=== PATIENT | male | born 1990 | race Caucasian/White ===

== ENCOUNTER 2016-07-30 11:58 | Emergency (ER) | payer BC, OTHER ==
--- NOTE | 2016-07-30 12:13 | EDM.PDOC ---
ED HPI Trauma - General Chief Complaint: Lower Extremity Injury/Pain Stated Complaint: LT KNEE HURTS Time Seen by Provider: 07/30/16 12:10 Source: Reports: Patient History Limitations: Reports: No limitations - History of Present Illness INITIAL COMMENTS - FREE TEXT/NARRATIVE: History of present illness: [25-year-old male presenting with complaints of pain to left knee. Patient indicates approximately 2-3 days ago he had been lifting heavy objects at work which is not unusual, and subsequently at the end of the day had a burning sensation and diffuse pain to left patella region. Patient indicates that the pain was on both sides of the patella consistent with issues in bilateral retinaculum.] Review of systems: As per history of present illness and below otherwise all systems reviewed and negative. Past medical history: As per history of present illness and as reviewed below otherwise noncontributory. Surgical history: As per history of present illness and as reviewed below otherwise noncontributory. Social history: No reported history of drug or alcohol abuse. Family history: As per history of present illness and as reviewed below otherwise noncontributory. Physical exam: HEENT: Atraumatic, normocephalic, pupils reactive, negative for conjunctival pallor or scleral icterus, mucous membranes moist, throat clear, neck supple, nontender, trachea midline. Lungs: Clear to auscultation, breath sounds equal bilaterally, chest nontender. Heart: S1S2, regular, negative for clicks, rubs, or JVD. Abdomen: Soft, nondistended, nontender. Negative for masses or hepatosplenomegaly. Negative for costovertebral tenderness. Pelvis: Stable nontender. Genitourinary: Deferred. Rectal: Deferred. Extremities: Atraumatic, negative for cords or calf pain. Neurovascular unremarkable. Neuro: Awake, alert, oriented. Cranial nerves II through XII unremarkable. Cerebellum unremarkable. Motor and sensory unremarkable throughout. Exam nonfocal. Some amount of guarding noted with passive range of motion. Patient ambulating with an altered gait upon arrival. Diagnostics: [X-ray of left knee] Therapeutics: [] Impression: [Knee pain] Plan: [Elevate, [id number] pain medication, alternate ice and heat] Definitive disposition and diagnosis as appropriate pending reevaluation and review of above. Allergies/ADRs: Allergies amoxicillin Allergy (Verified 07/30/16 12:07) Rash Home Medications: Ambulatory Orders . [No Known Home Meds] 07/30/16 [Confirmed 07/30/16] Past Medical History Cardiovascular History: Reports: None Respiratory History: Reports: None Musculoskeletal History: Reports: None Psychiatric History: Reports: None Dermatologic History: Reports: None - Infectious Disease History Infectious Disease History: Reports: None - Past Surgical History HEENT Surgical History: Reports: Tonsillectomy Cardiovascular Surgical History: Reports: None Musculoskeletal Surgical History: Reports: None Social & Family History - Tobacco Use Smoking Status *Q: Never Smoker Review of Systems - Review of Systems Review Of Systems: See Below (See history of present illness) Trauma Exam - Physical Exam Exam: See Below (The history of present illness) Course - Vital Signs Last Recorded V/S: Last Vital Signs Temp 36.6 C 07/30/16 12:03 Pulse 81 07/30/16 12:03 Resp 16 07/30/16 12:03 BP 122/66 07/30/16 12:03 Pulse Ox 98 07/30/16 12:03 Departure - Departure Time of Disposition: 13:07 Disposition: Home, Self-Care 01 Condition: good Clinical Impression: Left knee pain Qualifiers: Chronicity: acute Qualified Code(s): M25.562 - Pain in left knee Forms: ED Department Discharge Additional Instructions: The following information is given to patients seen in the emergency department who are being discharged to home. This information is to outline your options for follow-up care. We provide all patients seen in our emergency department with a follow-up referral. The need for follow-up, as well as the timing and circumstances, are variable depending upon the specifics of your emergency department visit. If you don't have a primary care physician on staff, we will provide you with a referral. We always advise you to contact your personal physician following an emergency department visit to inform them of the circumstance of the visit and for follow-up with them and/or the need for any referrals to a consulting specialist. The emergency department will also refer you to a specialist when appropriate. This referral assures that you have the opportunity for follow-up care with a specialist. All of these measure are taken in an effort to provide you with optimal care, which includes your follow-up. Under all circumstances we always encourage you to contact your private physician who remains a resource for coordinating your care. When calling for follow-up care, please make the office aware that this follow-up is from your recent emergency room visit. If for any reason you are refused follow-up, please contact the [facility] Emergency Department at and asked to speak to the emergency department charge nurse. Followup with primary care provider one to 2 days Keep leg elevated as much as possible and alternate ice and heat no longer than 20 minutes each time Return to ED as needed as discussed
--- NOTE | 2016-07-30 13:02 | CR ---
EXAMINATION: Left knee HISTORY: Pain COMPARISON: None TECHNIQUE: 3 views FINDINGS/IMPRESSION: There is no acute osseous abnormality, dislocation, or fracture identified. Bon e mineralization and joint spaces appear normal. No Soft tissue swelling or joint effusion.
[2016-07-30 13:42] VITALS: BP 120/76
== END 2016-07-30 13:29 | disposition home or self-care (01) ==
LOC: MW.ED 11:58
DX: M25.562 Pain in left knee (principal); Z79.899 Other long term (current) drug therapy; X50.0XXA Overexertion from strenuous movement or load, initial encounter
CPT/HCPCS: 73562-26-LT; 73562-LT; 99282; 99283

== ENCOUNTER 2017-09-11 01:56 | Emergency (ER) | payer OTHER, BC ==
--- NOTE | 2017-09-11 02:13 | EDM.PDOC ---
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 Past medical history: As per history of present illness and as reviewed below otherwise noncontributory. Surgical history: As per history of present illness and as reviewed below otherwise noncontributory. Social history: No reported history of drug or alcohol abuse. Family history: As per history of present illness and as reviewed below otherwise noncontributory. Physical exam: HEENT: Atraumatic, normocephalic, pupils reactive, negative for conjunctival pallor or scleral icterus, mucous membranes moist, throat clear, neck supple, nontender, trachea midline. Lungs: Clear to auscultation, breath sounds equal bilaterally, chest nontender. Heart: S1S2, regular, negative for clicks, rubs, or JVD. Abdomen: Soft, nondistended, nontender. Negative for masses or hepatosplenomegaly. Negative for costovertebral tenderness. Pelvis: Stable nontender. Genitourinary: Deferred. Rectal: Deferred. Extremities: Atraumatic, negative for cords or calf pain. Neurovascular unremarkable. Neuro: Awake, alert, oriented. Cranial nerves II through XII unremarkable. Cerebellum unremarkable. Motor and sensory unremarkable throughout. Exam nonfocal. Diagnostics: [ CBC CMP troponin EKG Chest 1 view ] Therapeutics: [ Cataflam 50 mg by mouth 3 times a day when necessary #30 no refill ] Impression: [ chest wall pain Muscle spasm ] Definitive disposition and diagnosis as appropriate pending reevaluation and review of above. chest pain Pain Score (Numeric/FACES): 10 - Related Data Allergies Allergy/AdvReac Type Severity Reaction Status Date / Time amoxicillin Allergy Rash Verified 09/11/17 02:06 Home Meds: Home Meds . [No Known Home Meds] 07/30/16 [History] Past Medical History HEENT History: Reports: None Cardiovascular History: Reports: None Respiratory History: Reports: None Gastrointestinal History: Reports: None Genitourinary History: Reports: None Musculoskeletal History: Reports: None Neurological History: Reports: None Psychiatric History: Reports: None Endocrine/Metabolic History: Reports: None Hematologic History: Reports: None Oncologic (Cancer) History: Reports: None Dermatologic History: Reports: None - Infectious Disease History Infectious Disease History: Reports: None - Past Surgical History Head Surgeries/Procedures: Reports: None HEENT Surgical History: Reports: Tonsillectomy Cardiovascular Surgical History: Reports: None Musculoskeletal Surgical History: Reports: None Social & Family History - Family History Family Medical History: Noncontributory - Tobacco Use Smoking Status *Q: Never Smoker - Caffeine Use Caffeine Use: Reports: Energy Drinks - Recreational Drug Use Recreational Drug Use: No ED ROS GENERAL - Review of Systems Review Of Systems: ROS reveals no pertinent complaints other than HPI. ED EXAM, GENERAL - Physical Exam Exam: See Below Course - Vital Signs Last Recorded V/S: Last Vital Signs Temp 97.4 F 09/11/17 02:27 Pulse 63 09/11/17 02:27 Resp 18 09/11/17 02:27 BP 109/67 09/11/17 02:27 Pulse Ox 98 09/11/17 02:27 - Orders/Labs/Meds Orders: Active Orders 24 hr Category Date Time Status EKG Documentation Completion [RC] STAT Care 09/11/17 02:09 Active Chest 1V Frontal [CR] Stat Exams 09/11/17 02:09 Taken Labs: Laboratory Tests 09/11/17 09/11/17 Range/Units 02:25 02:25 WBC 6.35 (4.0-11.0) K/uL RBC 4.41 L (4.50-5.90) M/uL Hgb 14.1 (13.0-17.0) g/dL Hct 39.6 (38.0-50.0) % MCV 89.8 (80.0-98.0) fL MCH 32.0 (27.0-32.0) pg MCHC 35.6 (31.0-37.0) g/dL RDW Std Deviation 41.9 (28.0-62.0) fl RDW Coeff of Saira 13 (11.0-15.0) % Plt Count 171 (150-400) K/uL MPV 10.50 (7.40-12.00) fL Neut % (Auto) 37.9 L (48.0-80.0) % Lymph % (Auto) 43.0 H (16.0-40.0) % [place] % (Auto) 11.7 (0.0-15.0) % Eos % (Auto) 6.9 (0.0-7.0) % Baso % (Auto) 0.5 (0.0-1.5) % Neut # (Auto) 2.4 (1.4-5.7) K/uL Lymph # (Auto) 2.7 H (0.6-2.4) K/uL [place] # (Auto) 0.7 (0.0-0.8) K/uL Eos # (Auto) 0.4 (0.0-0.7) K/uL Baso # (Auto) 0.0 (0.0-0.1) K/uL Nucleated RBC % 0.0 /100WBC Nucleated RBCs # 0 K/uL Sodium 140 (136-148) mmol/L Potassium 3.7 (3.5-5.1) mmol/L Chloride 105 (98-107) mmol/L Carbon Dioxide 25.1 (21.0-32.0) mmol/L BUN 14 (7.0-18.0) mg/dL Creatinine 1.0 (0.8-1.3) mg/dL Est Cr Clr Drug Dosing 114.04 mL/min Estimated GFR (MDRD) > 60.0 ml/min Glucose 99 (74-106) mg/dL Calcium 8.8 (8.5-10.1) mg/dL Total Bilirubin 1.5 H (0.2-1.0) mg/dL AST 20 (15-37) IU/L ALT 19 (14-63) IU/L Alkaline Phosphatase 61 (46-116) U/L Troponin I < 0.050 (0.000-0.056) ng/mL Total Protein 7.1 (6.4-8.2) g/dL Albumin 4.2 (3.4-5.0) g/dL Globulin 2.9 (2.0-3.5) g/dL Albumin/Globulin Ratio 1.4 (1.3-2.8) Departure - Departure Time of Disposition: 03:25 Disposition: Home, Self-Care 01 Condition: Good Clinical Impression: Chest wall pain, Muscle spasm - Discharge Information Forms: ED Department Discharge Additional Instructions: Medication as prescribed Return if symptoms persist or worsen or new concerning symptoms develop Follow-up with primary care in 2 [address] sooner as needed [facility] - [facility] [address] [place] [id number] The following information is given to patients seen in the emergency department who are being discharged to home. This information is to outline your options for follow-up care. We provide all patients seen in our emergency department with a follow-up referral. The need for follow-up, as well as the timing and circumstances, are variable depending upon the specifics of your emergency department visit. If you don't have a primary care physician on staff, we will provide you with a referral. We always advise you to contact your personal physician following an emergency department visit to inform them of the circumstance of the visit and for follow-up with them and/or the need for any referrals to a consulting specialist. The emergency department will also refer you to a specialist when appropriate. This referral assures that you have the opportunity for follow-up care with a specialist. All of these measure are taken in an effort to provide you with optimal care, which includes your follow-up. Under all circumstances we always encourage you to contact your private physician who remains a resource for coordinating your care. When calling for follow-up care, please make the office aware that this follow-up is from your recent emergency room visit. If for any reason you are refused follow-up, please contact the [facility] emergency department at and asked to speak to the emergency department charge nurse. - My Orders Last 24 Hours: My Active Orders 09/11/17 02:09 EKG Documentation Completion [RC] STAT Chest 1V Frontal [CR] Stat - Assessment/Plan Last 24 Hours: My Active Orders 09/11/17 02:09 EKG Documentation Completion [RC] STAT Chest 1V Frontal [CR] Stat
[2017-09-11 02:56] LABS: CHLORIDE,CL 105 mmol/L (98-107); SODIUM,NA 140 mmol/L (136-148)
[2017-09-11] MEDS ORDERED: Ketorolac 30 MG/ML SDV IVPUSH ONE (03:27)
[2017-09-11] MEDS ORDERED: Ketorolac 30 MG/ML SDV IM ONE (03:47)
[2017-09-11 04:22] VITALS: BP 118/63
--- NOTE | 2017-09-11 12:40 | CR ---
EXAM DATE: 09/11/17 PATIENT'S AGE: 26 Patient: MARY GRACE ARIAS Facility: [place], [place] Site . Site : 1990 Study: XRay Chest [id number] 2:44:27 AM Ordering Physician: Rola Alan Final Report: Indication: Chest pain, shortness of breath Technique: Chest 1 view Comparison: None Findings/Impression: Cardiovascular and mediastinum: Heart size and vasculature are normal in caliber and appearance. Mediastinum is within normal limits. Lungs and pleural space: Lungs are clear. No sign of infiltrate or mass. No sign of pleural effusion. No pneumothorax. Bones and soft tissues: No significant findings. Dictated by Mimi Park MD @ Sep 11 2017 2:50AM (Electronic Signature) Report Signed by Proxy. [facility]
== END 2017-09-11 04:30 | disposition home or self-care (01) ==
LOC: MW.ED 01:56
DX: R07.89 Other chest pain (principal); M62.838 Other muscle spasm; Z88.1 Allergy status to other antibiotic agents
CPT/HCPCS: 36415; 71045; 80053; 84484; 85025; 93005; 96372; 99285; J1885

== ENCOUNTER 2020-02-28 22:48 | Emergency (ER) | payer BC ==
[2020-02-28] MEDS ORDERED: Sodium Chloride 0.9% 1,000 ML IV ONE (23:48)
[2020-02-28] MEDS ORDERED: LORazepam 0.5 MG Tab PO ONE (23:49)
--- NOTE | 2020-02-29 00:17 | CR ---
Indication: Chest pain Technique: Chest 1 view Comparison: Chest x-ray 09/11/2017 Findings/Impression: Cardiovascular and mediastinum: Heart size and vasculature are normal in caliber and appearance. Lungs and pleural space: Lungs are clear. No sign of infiltrate or mass. No sign of pleural effusion. No pneumothorax. Bones and soft tissues: No acute findings. Dictated by Evelio Sin MD @ Feb 29 2020 12:14AM Signed by Dr. Evelio Sin @ Feb 29 2020 12:16AM
[2020-02-29 00:28] LABS: BLOOD UREA NITROGEN,BUN 14 mg/dL (7.0-18.0); CARBON DIOXIDE,CO2 25.9 mmol/L (21.0-32.0); CHLORIDE,CL 102 mmol/L (98-107); GLUCOSE RANDOM 115 mg/dL (74-106); POTASSIUM,K 3.5 mmol/L (3.5-5.1); SODIUM,NA 139 mmol/L (136-148)
--- NOTE | 2020-02-29 04:39 | EDM.PDOC ---
ED HPI GENERAL MEDICAL PROBLEM - General Chief Complaint: Behavioral/Psych Stated Complaint: CHEST PAIN Time Seen by Provider: 02/28/20 23:46 - History of Present Illness INITIAL COMMENTS - FREE TEXT/NARRATIVE: CHIEF COMPLAINT(S): "My chest feels hot." HISTORY OF PRESENT ILLNESS: This is a 29-year-old man and without any significant past medical history who comes to the emergency department with a chief complaint of "my chest feels hot." The patient states that approximately 3 hours prior to arrival he was smoking marijuana and that he felt like the left side of his chest was hot and he feels like there is numbness in his left arm and left back. He denies any pain, shortness of breath, lower extremity edema, recent travel or recent surgery. He denies any nausea or vomiting. He denies any coingestions. He states that he is concerned because there is cardiac disease in his family. He states that his father in his 30s had heart attacks. He denies any other symptoms. He states that he does feel anxious. REVIEW OF SYSTEMS: Constitutional: Denies fever, chills. Eyes: Denies eye pain Ears, Nose, Mouth, & Throat: Denies earache Cardiovascular: Positive for sensation of warmth on his left chest. Denies c hest pain Respiratory: Denies shortness of breath Gastrointestinal: Denies Nausea, vomiting, diarrhea, hematochezia. Genitourinary: Denies hematuria Skin:Denies a rash Neurological: Positive for numbness on his back and left arm. Denies blurred vision, headache, weakness Psychiatric: Denies depression PAST MEDICAL HISTORY: As per history of present illness and as reviewed below otherwise noncontributory. SURGICAL HISTORY: As per history of present illness and as reviewed below otherwise noncontributory. SOCIAL HISTORY: As per history of present illness and as reviewed below otherwise noncontributory. FAMILY HISTORY: As per history of present illness and as reviewed below otherwise noncontributory. EXAMINATION OF ORGAN SYSTEMS/BODY AREAS: Constitutional: Blood pressure was 156/84, heart rate 67, respiratory rate 20 with an oxygen saturation 97% on room air. Temperature 37.2 General: Anxious appearing man who is in no acute distress Psychiatric: Appears anxious Eyes: No scleral icterus or conjunctival erythema there is scleral injection. Pupils are equal round and reactive to light. Extraocular movements intact. ENMT: Dry mucous membranes. No oropharyngeal erythema. Cardiovascular: Regular, rate, and rythym. No gallops, murmurs, or rubs. Bilateral upper extremity pulses symmetric and intact. No peripheral edema. No JVD. Respiratory: Lungs clear to auscultation bilaterally. No wheezes, rales, or rhonchi. Gastrointestinal: Soft, non-tender, non-distended. Normoactive bowel sounds Genitourinary: No suprapubic tenderness Musculoskeletal: Of the right shoulder, right elbow, right wrist, right hand. Skin: No lesions or abrasions. Neurological: AOx4. CN grossly intact. Stregth 5/5 in bilateral upper and lower extremity. Sensation is intact bilaterally in upper and lower extremity. MEDICAL DECISION MAKING AND COURSE IN THE ED WITH INTERPRETATION/REVIEW OF DIAGNOSTIC STUDIES: This is a 29-year-old man without any significant past medical history who comes to the emergency department with sensation of his left-sided chest wall being warm with numbness in his back and left arm. Given the patient's family history of cardiac disease I did obtain an EKG which did not reveal any acute signs of ischemia. The patient will undergo a cardiac work-up including troponin x2. We treat the patient symptomatically with IV fluids and 0.5 mg of Ativan for anxiety. We will place the patient on cardiac monitoring and pulse oximetry. Laboratory: BMP was unremarkable except for mild hyperglycemia at 115. Troponin x2 is negative. Twelve-lead EKG interpreted by myself. Normal sinus rhythm at a rate of 70beats per minute. Normal axis. VT interval is 159ms. QRS duration is 90ms. ST segments are normal without elevations or depressions. No Q waves present. Hypertrophy not noted. No prior EKGs in our system interpretation: Normal sinus rhythm The radiological images were viewed by myself along with reading the report from the radiologist. Chest x-ray does not reveal an acute cardiopulmonary process. The patient was observed in the emergency department, patient was able to ambulate without any difficulty, was able to tolerate p.o. At this time I do believe the patient symptoms are likely secondary to marijuana use. I did discuss this with the patient. I discussed with him that he should follow-up with a primary care physician in 2 to 3 days. He is to return for any new worsening symptoms. The patient was amenable to discharge at this time and had no further questions DISPOSITION: The patient was discharged home in stable condition. The patient will follow up with primary care within 2 to 3 days CONDITION: Fair PROCEDURES: None FINAL IMPRESSION(S)/DIAGNOSES: 1. Acute marijuana intoxication Rick Grossman M.D. - Related Data Allergies Allergy/AdvReac Type Severity Reaction Status Date / Time amoxicillin Allergy Rash Verified 02/28/20 23:19 Home Meds: Home Meds . [No Known Home Meds] 07/30/16 [History] Past Medical History HEENT History: Reports: None Cardiovascular History: Reports: None Other Cardiovascular History: was seen in ER for mini chest pains- had stress test but didnt find anything Respiratory History: Reports: None Gastrointestinal History: Reports: None Genitourinary History: Reports: None Musculoskeletal History: Reports: None Other Musculoskeletal History: Broken R ring finger Neurological History: Reports: None Psychiatric History: Reports: ADD, Depression Endocrine/Metabolic History: Reports: None Hematologic History: Reports: None Oncologic (Cancer) History: Reports: None Dermatologic History: Reports: None - Infectious Disease History Infectious Disease History: Reports: Chicken Pox - Past Surgical History Head Surgeries/Procedures: Reports: None HEENT Surgical History: Reports: Tonsillectomy Cardiovascular Surgical History: Reports: None Musculoskeletal Surgical History: Reports: None Social & Family History - Family History Family Medical History: Noncontributory - Caffeine Use Caffeine Use: Reports: None - Recreational Drug Use Recreational Drug Type: Reports: Marijuana/Hashish ED ROS GENERAL - Review of Systems Review Of Systems: See Below ED EXAM, GENERAL - Physical Exam Exam: See Below Course - Vital Signs Last Recorded V/S: Last Vital Signs Temp 37.2 C 02/28/20 23:21 Pulse 63 02/29/20 04:40 Resp 16 02/29/20 04:40 BP 127/82 02/29/20 04:40 Pulse Ox 98 02/29/20 04:40 - Orders/Labs/Meds Orders: Active Orders 24 hr Category Date Time Status EKG 12 Lead [EKG Documentation Completion] [RC] STAT Care 02/28/20 23:49 Active Labs: Laboratory Tests 02/29/20 02/29/20 02/29/20 Range/Units 00:00 00:00 02:47 Sodium 139 (136-148) mmol/L Potassium 3.5 (3.5-5.1) mmol/L Chloride 102 (98-107) mmol/L Carbon Dioxide 25.9 (21.0-32.0) mmol/L BUN 14 (7.0-18.0) mg/dL Creatinine 1.1 (0.8-1.3) mg/dL Est Cr Clr Drug Dosing 101.35 mL/min Estimated GFR (MDRD) > 60.0 ml/min Glucose 115 H (74-106) mg/dL Calcium 9.3 (8.5-10.1) mg/dL Total Bilirubin 0.9 (0.2-1.0) mg/dL AST 20 (15-37) IU/L ALT 29 (14-63) IU/L Alkaline Phosphatase 55 (46-116) U/L Troponin I < 0.050 < 0.050 (0.000-0.056) ng/mL Total Protein 8.0 (6.4-8.2) g/dL Albumin 4.7 (3.4-5.0) g/dL Globulin 3.3 (2.6-4.0) g/dL Albumin/Globulin Ratio 1.4 (0.9-1.6) Meds: Medications Discontinued Medications Generic Name Dose Route Start Last Admin Trade Name Freq PRN Reason Stop Dose Admin Sodium Chloride 1,000 mls @ 999 mls/hr 02/28/20 23:48 02/29/20 00:01 Normal Saline IV 02/29/20 00:48 999 mls/hr .Bolus ONE Administration Lorazepam 0.5 mg 02/28/20 23:49 02/29/20 00:03 Ativan PO 02/28/20 23:50 0.5 mg ONETIME ONE Administration Departure - Departure Time of Disposition: 04:38 Disposition: Home, Self-Care 01 Condition: Fair Clinical Impression: Marijuana intoxication Qualifiers: Complication of substance-induced condition: with perceptual disturbance Qualified Code(s): F12.922 - Cannabis use, unspecified with intoxication with perceptual disturbance - Discharge Information *PRESCRIPTION DRUG MONITORING PROGRAM REVIEWED*: No *COPY OF PRESCRIPTION DRUG MONITORING REPORT IN PATIENT CALEB: No Instructions: Cannabis Use Disorder, What You Need to Know About Marijuana Use Referrals: Kassidy Simmons PA [Primary Care Provider] - Forms: ED Department Discharge Additional Instructions: The patient is informed of any results of their evaluation and diagnostic workup and all questions are answered. They are given discharge instructions and return precautions. The patient is stable for discharge. The patient states they understand and agree with the plan and that they will return if their symptoms get worse or if they have any new concerns. The following information is given to patients seen in the emergency department who are being discharged to home. This information is to outline your options for follow-up care. We provide all patients seen in our emergency department with a follow-up referral. The need for follow-up, as well as the timing and circumstances, are variable depending upon the specifics of your emergency department visit. If you don't have a primary care physician on staff, we will provide you with a referral. We always advise you to contact your personal physician following an emergency department visit to inform them of the circumstance of the visit and for follow-up with them and/or the need for any referrals to a consulting specialist. The emergency department will also refer you to a specialist when appropriate. This referral assures that you have the opportunity for follow-up care with a specialist. All of these measure are taken in an effort to provide you with optimal care, which includes your follow-up. Under all circumstances we always encourage you to contact your private physician who remains a resource for coordinating your care. When calling for follow-up care, please make the office aware that this follow-up is from your recent emergency room visit. If for any reason you are refused follow-up, please contact the [facility] Emergency Department at and asked to speak to the emergency department charge nurse. Please continue to hydrate by mouth. Please follow-up with primary care physician this week. Return to the emergency department for any new or worsening symptoms. Sepsis Event Note (ED) - Evaluation Sepsis Screening Result: No Definite Risk - Focused Exam Vital Signs: Vital Signs Temp Pulse Resp BP Pulse Ox 02/29/20 04:40 63 16 127/82 98 02/29/20 04:00 61 18 100 02/29/20 03:00 60 18 98 02/29/20 01:59 61 18 120/80 100 02/29/20 00:45 78 18 131/79 97 02/28/20 23:21 37.2 C 67 20 156/84 H 97 - My Orders Last 24 Hours: My Active Orders 02/28/20 23:49 EKG 12 Lead [EKG Documentation Completion] [RC] STAT - Assessment/Plan Last 24 Hours: My Active Orders 02/28/20 23:49 EKG 12 Lead [EKG Documentation Completion] [RC] STAT
[2020-02-29 04:41] VITALS: BP 127/82; PULSE 63
== END 2020-02-29 04:45 | disposition home or self-care (01) ==
LOC: MW.ED 22:48
DX: F12.922 Cannabis use, unspecified with intoxication with perceptual disturbance (principal); T40.7X5A Adverse effect of cannabis (derivatives), initial encounter; Z88.0 Allergy status to penicillin
CPT/HCPCS: 36415; 71045; 80053; 84484; 93005; 99285; A9270; J7030; 93010; 99284